=== PATIENT | male | born 1970 | race Caucasian/White ===

== ENCOUNTER 2021-05-21 12:07 | Emergency (ER) | payer OTHER ==
[~2021-05-21] VITALS: Ht 175.3 cm; Wt 70.3 kg
[~2021-05-21 12:07] MED LIST: ACETAMINOPHEN-1 EAC1 PO; IBUPROFEN 800800 M1 PO; NOHOMEMEDICATIONS
[2021-05-21] MEDS ORDERED: CLEOCIN HCL150 MG PO (13:56)
[2021-05-21] MEDS ORDERED: IBUPROFEN 800800 M1 PO (13:56)
[2021-05-21 14:17] VITALS: BP 121/82
== END 2021-05-21 14:17 ==
LOC: M.ERS 12:07
DX: K04.7 Periapical abscess without sinus (principal); Z88.0 Allergy status to penicillin